=== PATIENT | male | born 1985 | race Caucasian/White ===

== ENCOUNTER 2021-10-22 14:15 | Emergency (ER) | payer OTHER ==
[~2021-10-22] VITALS: Ht 180.3 cm; Wt 97.5 kg
--- NOTE | 2021-10-22 14:15 | NUR ---
PT BIBRA 88 FROM HOME C/O WITNESSED SEIZURE EPISODE PT ADMITS TO DRINKING ALCOHOL. PT IS AAOX3, NOT IN RESPIRATORY DISTRESS, HOOKED TO RIGHT OF WAY MAN, SEIZURE PREC INITIATED. KEPT RESTED AND COMFORTABLE. WILL CONTINUE TO MONITOR.
--- NOTE | 2021-10-22 15:12 | NUR ---
SEEN AND EXAMINED BY .
[2021-10-22] MEDS ORDERED: LORAZEPAM INJ 2 MG/ML VIAL IM ONE (15:30)
[2021-10-22] MEDS ORDERED: LORAZEPAM INJ 2 MG/ML VIAL ONE (15:38)
[2021-10-22] MEDS ORDERED: LORAZEPAM INJ 2 MG/ML VIAL IV ONE (16:30)
[2021-10-22] MEDS ORDERED: CHLO25CA22 PO (16:58)
--- NOTE | 2021-10-22 17:05 | NUR ---
IV removed. Catheter intact and site benign. Pressure and 4x4 applied to site. No bleeding noted. Patient discharged to home in stable condition. Written and verbal after care instructions given. Patient verbalizes understanding of instruction.
[2021-10-22 17:06] VITALS: BP 127/64
== END 2021-10-22 17:06 | disposition home or self-care (01) ==
LOC: ER 14:20
DX: S01.512A Laceration without foreign body of oral cavity, initial encounter (principal); F10.229 Alcohol dependence with intoxication, unspecified; R56.9 Unspecified convulsions; Z79.52 Long term (current) use of systemic steroids; W50.3XXA Accidental bite by another person, initial encounter; Y93.01 Activity, walking, marching and hiking; Y92.481 Parking lot as the place of occurrence of the external cause; Y99.8 Other external cause status; Y90.9 Presence of alcohol in blood, level not specified
CPT/HCPCS: 70450; 72125; 96372; 99284; J2060

== ENCOUNTER 2021-11-14 08:56 | Emergency (ER) | payer OTHER ==
[~2021-11-14] VITALS: Ht 182.9 cm; Wt 99.8 kg
[~2021-11-14 08:56] MED LIST: CHLO25CA22 PO
--- NOTE | 2021-11-14 09:07 | NUR ---
MARA DENNIS "works at [employer] was drinking after work-got drunk could NOT get Home [id number]". TO ER BED 12, HOOKED TO MONITOR. VSMeena GALEANOED TO HOSP GOWN, WARM BLANKET PROVIDED. WILL CONTINUE TO MONITOR. DR LYNCH AT BEDSIDE
[2021-11-14 11:49] VITALS: BP 134/90
--- NOTE | 2021-11-14 11:49 | NUR ---
Patient discharged to home in stable condition. Written and verbal after care instructions given. Patient verbalizes understanding of instruction.
== END 2021-11-14 11:50 | disposition home or self-care (01) ==
LOC: ER 08:58
DX: F10.129 Alcohol abuse with intoxication, unspecified (principal); Z86.69 Personal history of other diseases of the nervous system and sense organs; Z79.899 Other long term (current) drug therapy; Y90.9 Presence of alcohol in blood, level not specified
CPT/HCPCS: 70450-TC

== ENCOUNTER 2021-12-08 12:17 | Inpatient (IN) | payer OTHER ==
[2021-12-07 19:25] VITALS: BP 150/92
[~2021-12-08] VITALS: Ht 180.3 cm; Wt 102.1 kg
[2021-12-08 15:37] LABS: BASOPHILS % (AUTO) 0.7 % (0.0-2.0); EOSINOPHILS % (AUTO) 2.7 % (0.0-6.0); HEMATOCRIT 44 % (39-51); LYMPHOCYTES # (AUTO) 1.2 K/uL (0.8-4.8); LYMPHOCYTES % (AUTO) 30.2 % (20.0-44.0); MEAN CORPUSCULAR HGB CONC 34 g/dl (31.0-36.0); MEAN CORPUSCULAR VOLUME 93 fL (80-96); MONOCYTES # (AUTO) 0.4 K/uL (0.1-1.30); MONOCYTES % (AUTO) 10.1 % (2.0-12.0); NEUTROPHILS # (AUTO) 2.2 K/uL (1.8-8.9); NEUTROPHILS % (AUTO) 56.3 % (43.0-81.0); PLATELET COUNT (AUTO) 284 K/uL (150-450); RED BLOOD CELL COUNT(AUTO) 4.77 MIL/uL (4.5-6.0); WHITE BLOOD COUNT (AUTO) 3.9 K/uL (4.3-11.0)
[2021-12-08 16:03] LABS: CALCIUM, SERUM 8.8 mg/dL (8.5-10.1); CREATININE 0.9 mg/dL (0.6-1.3); POTASSIUM 3.7 mmol/L (3.5-5.1)
[2021-12-08] MEDS ORDERED: IV NS 0.9% 1,000 ML BAG IV ONE (16:30)
--- NOTE | 2021-12-08 16:36 | NUR ---
TAKEN TO CT
--- NOTE | 2021-12-08 17:00 | NUR ---
COVID SWAB DONE AND SENT TO LAB
--- NOTE | 2021-12-08 20:28 | NUR ---
REPORT GIVEN TO [phone]
[2021-12-08] MEDS ORDERED: IV NS 0.9% 1,000 ML IV SCH (21:00)
[2021-12-08] MEDS ORDERED: Z GUARD REMEDY 4 OZ OINT TP PRN (21:00)
[2021-12-08] MEDS ORDERED: ONDANSETRON HCL/PF 4 MG/2 ML VIAL IVP PRN (21:00)
[2021-12-08] MEDS ORDERED: PHARMACY ADD 1 AMP MVI TO IVF DAILY ONE BAG XX PRN (21:00)
[2021-12-08] MEDS ORDERED: LORAZEPAM INJ 2 MG/ML VIAL IV PRN (21:00)
[2021-12-08] MEDS ORDERED: MAGNESIUM HYDROXIDE 30 ML UDC PO PRN (21:00)
[2021-12-08] MEDS ORDERED: ZOLPIDEM TARTRATE 5 MG TABLET PO PRN (21:00)
[2021-12-08] MEDS ORDERED: ACETAMINOPHEN 325 MG TABLET PO PRN (21:00)
[2021-12-08] MEDS ORDERED: MAG HYDROX/AL HYDROX/SIMETH 30 ML UDC PO PRN (21:00)
--- NOTE | 2021-12-08 21:05 | NUR ---
report given to fe GRACE).
--- NOTE | 2021-12-08 21:14 | NUR ---
PT TRANSFERRED PER HOSPITAL PROTOCOL.
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
[2021-12-08] MEDS: MVI ADULT 10ML VIAL = 1AMP 10 ML in IV NS 0.9% 1,000 ML IV SCH (21:48)
[2021-12-08] MEDS: Thiamine 100 MG in IV D5W 50 ML IV SCH (21:52)
[2021-12-08] MEDS: MORPHINE SULFATE INJ 2 MG/ML DISP.SYRIN IV PRN (22:15)
--- NOTE | 2021-12-08 22:15 | NUR ---
RN NOTE MORPHINE GIVEN FOR L ANKLE PAIN. WILL REASSESS FOR EFFECTIVENESS.
[2021-12-08] MEDS: Folic acid 1 MG in IV D5W 50 ML IV SCH (22:27)
[2021-12-09] MEDS: MORPHINE SULFATE INJ 2 MG/ML DISP.SYRIN IV PRN ×6 (02:24→22:54)
--- NOTE | 2021-12-09 03:30 | NUR ---
RN NOTE PATIENT GIVEN MORPHINE FOR LEFT ANKLE PAIN. PATIENT STATES THAT IT HURTS WHEN L FOOT MOVES OR TWITCHES. WRAPPED ANKLE WITH TEJ WRAP TO STABILIZE IT AND ELEVATED TO REDUCE SWELLING. WILL REASSESS FOR EFFECTIVENESS.
[2021-12-09] MEDS: MVI ADULT 10ML VIAL = 1AMP 10 ML in IV NS 0.9% 1,000 ML IV SCH (06:40)
[2021-12-09 06:44] LABS: BASOPHILS % (AUTO) 0.7 % (0.0-2.0); HEMATOCRIT 44 % (39-51); HEMOGLOBIN 14.9 g/dL (13.5-17.5); LYMPHOCYTES # (AUTO) 1.3 K/uL (0.8-4.8); LYMPHOCYTES % (AUTO) 30.6 % (20.0-44.0); MEAN CORPUSCULAR HGB CONC 34 g/dl (31.0-36.0); MEAN CORPUSCULAR VOLUME 94 fL (80-96); MONOCYTES # (AUTO) 0.5 K/uL (0.1-1.30); MONOCYTES % (AUTO) 11.9 % (2.0-12.0); NEUTROPHILS # (AUTO) 2.3 K/uL (1.8-8.9); NEUTROPHILS % (AUTO) 52.8 % (43.0-81.0); PLATELET COUNT (AUTO) 248 K/uL (150-450); RED BLOOD CELL COUNT(AUTO) 4.64 MIL/uL (4.5-6.0); WHITE BLOOD COUNT (AUTO) 4.3 K/uL (4.3-11.0)
--- NOTE | 2021-12-09 06:53 | NUR ---
RN CLOSING NOTE PATIENT IN BED, AWAKE. PATIENT IS A/O X 4, ABLE TO MAKE NEEDS KNOWN. PATIENT TOLERATING ROOM AIR, NOT IN ANY APPARENT DISTRESS. PATIENT GIVEN MORPHINE FOR L ANKLE PAIN AT 0634. PATIENT MAINTAINED NPO STATUS. L HAND 20 G PATENT AND INTACT WITH MVI WITH NS ON GOING AT 100 ML/HR. SAFETY MEASURES IN PLACE: BED LOCKED AN DIN LOWEST POSITION, CALL LIGHT WITHIN REACH, SIDE RAILS UP. WILL ENDORSE TO DAY SHIFT NURSE FOR BRITNEY.
[2021-12-09 07:49] LABS: CALCIUM, SERUM 8.8 mg/dL (8.5-10.1); CREATININE 0.9 mg/dL (0.6-1.3); PHOSPHORUS 3.8 mg/dL (2.5-4.9); POTASSIUM 3.8 mmol/L (3.5-5.1)
[2021-12-09 08:00] VITALS: BP 144/89
[2021-12-09] MEDS ORDERED: MVI ADULT 10ML VIAL = 1AMP 10 ML in IV NS 0.9% 1,000 ML IV PRN (11:00)
[2021-12-09 16:00] VITALS: BP 142/89
[2021-12-09] MEDS: IV NS 0.9% 1,000 ML IV PRN (16:25)
--- NOTE | 2021-12-09 18:00 | NUR ---
RECEIVED PT. IN AM ALERT AND ORIENTED X4.GIRLFRIEND IN TO VISIT.MED. X3 WITH MORPHINE.TOLERATED WELL.VS STABLE.FOR SURGERY TOMORROW,CONSENT SIGNED.
[2021-12-09 20:00] VITALS: BP 146/95
[2021-12-09] MEDS: Folic acid 1 MG in IV D5W 50 ML IV SCH (21:08)
[2021-12-09] MEDS: Thiamine 100 MG in IV D5W 50 ML IV SCH (21:45)
--- NOTE | 2021-12-10 01:11 | NUR ---
MS/TELE/RN PATIENT IS SLEEPING AT THIS TIME, APPEARS COMFORTABLE, NO DISTRESS NOTED, CALL LIGHT IN REACH, NPO STATUS STARTED, WILL MONITOR.
[2021-12-10] MEDS: MORPHINE SULFATE INJ 2 MG/ML DISP.SYRIN IV PRN ×5 (03:26→20:02)
[2021-12-10] MEDS: IV NS 0.9% 1,000 ML IV PRN (03:56)
--- NOTE | 2021-12-10 03:57 | NUR ---
MS/TELE/RN NEED TO HANG NS 1000 MLS WITH MVI, PER NURSING [employer] MVI IS NOT AVAILABLE IN THE NIGHT LOCKER. WILL HANG PLAIN NS INSTEAD.
--- NOTE | 2021-12-10 06:46 | NUR ---
MS/TELE/RN PATIENT IS AWAKE, COMFORTABLE, NO DISTRESS NOTE, CALL LIGHT IN REACH, ALL NEEDS ATTENDED AT THIS TIME, WILL CONTINUE TO MONITOR.
--- NOTE | 2021-12-10 07:40 | NUR ---
RN NOTES A/O X4, VERBALLY RESPONSIVE, NOT IN ACUTE DISTRESS. C/O L ANKLE PAIN, 8/10, W/ STANDING ORDER FOR ANALGESIA. CURRENTLY NPO FOR SCHEDULED SURGERY. SAFETY MEASURES IN PLACE. WILL CONTINUE TO MONITOR.
[2021-12-10 08:00] VITALS: BP 129/92
--- NOTE | 2021-12-10 08:13 | NUR ---
RN NOTES RECEIVED CALL FROM SURGERY; CONSENT FORMS SIGNED AND IN THE CHART. CHECKLIST DONE.
--- NOTE | 2021-12-10 08:26 | NUR ---
RN NOTES PATIENT PICKED UP FOR SURGERY W/ DR. BAUTISTA [facility]IA [facility], ACCOMPANIED BY 1 OR TECH.
[2021-12-10] MEDS ORDERED: POLYMYXIN B SULFATE 500,000 UNITS ONE (08:37)
[2021-12-10] MEDS ORDERED: BUPIVACAINE 0.25% 75 MG/30 ML VIAL ONE (08:37)
[2021-12-10] MEDS ORDERED: FENTANYL PF 250MCG/5ML AMPUL ONE (08:38)
[2021-12-10] MEDS ORDERED: MIDAZOLAM HCL 2 MG/2ML VIAL ONE ×2 (08:38→11:03)
[2021-12-10] MEDS: FOLIC ACID 1 MG TABLET PO SCH (09:45)
[2021-12-10] MEDS: THIAMINE HCL 100 MG TABLET PO SCH (09:45)
[2021-12-10] MEDS ORDERED: HYDROMORPHONE 1 MG/1 ML DISP.SYRIN ONE ×2 (10:28→10:45)
--- NOTE | 2021-12-10 11:40 | NUR ---
RN NOTES PATIENT RETURNED FROM SURGERY VIA GURNEY, ACCOMPANIED BY 2 OR NURSES.
[2021-12-10] MEDS: HYDROCODONE/APAP 5/325MG TABLET PO PRN ×3 (14:06→22:23)
[2021-12-10] MEDS: ANCEF 1 GM/50 ML D5W IV SCH ×4 (15:56→23:19)
--- NOTE | 2021-12-10 18:17 | NUR ---
RN NOTES LEFT FOOT/ANKLE ELEVATED W/ PILLOWS IN BED; ICE PACKS PLACED ON LEFT ANKLE. PATIENT ABLE TO LIFT LLE; CURRENTLY MANAGING PAIN, NOT IN ACUTE DISTRESS. ABLE TO USE URINAL AT BEDSIDE. NO COMPLAINT OF NAUSEA/VOMITING.
--- NOTE | 2021-12-10 19:30 | NUR ---
RN OPENING NOTE PATIENT IN BED, AWAKE WITH GIRLFRIEND AT BEDSIDE. PATIENT IS ABLE TO MAKE NEEDS KNOWN, A/O X 4. PATIENT REPORTS PAIN ON L ANKLE, S/P L ANKLE ORIF WITH DR. BAUTISTA. PATIENT HAS A L HAND 20 G PATENT AND INTACT, NS RUNNING AT THIS TIME, WILL HANG MVI WITH NS. PATIENT REPORTS PAIN ON L ANKLE, WILL MANAGE PAIN ACCORDINGLY. PATIENT ON RA, TOLERATING WELL. SAFETY MEASURES IN PLACE: BED LOCKED AND IN LOWEST POSITION, CALL LIGHT WITHIN REACH, SIDE RAILS UP. WILL MONITOR PATIENT CLOSELY.
[2021-12-10 20:00] VITALS: BP 121/78
--- NOTE | 2021-12-10 20:02 | NUR ---
RN NOTE MORPHINE GIVEN FOR PAIN ON L ANKLE. WILL REASSESS MED EFFECTIVENESS. ICE PACK ON SX SITE.
--- NOTE | 2021-12-10 22:25 | NUR ---
RN NOTE PATIENT GIVEN NORCO 5-325 AT THIS TIME. WILL REASSESS MED EFFECTIVENESS AT A LATER TIME.
[2021-12-11] MEDS: MORPHINE SULFATE INJ 2 MG/ML DISP.SYRIN IV PRN ×5 (00:04→16:49)
--- NOTE | 2021-12-11 00:05 | NUR ---
RN NOTE PATIENT GIVEN MORPHINE 2 MG IVP AT THIS TIME AND AMBIEN TO HELP WITH AID PATIENT TO SLEEP. WILL REASSESS MED EFFECTIVENESS AT A LATER TIME.
[2021-12-11] MEDS: HYDROCODONE/APAP 5/325MG TABLET PO PRN ×4 (02:23→16:47)
--- NOTE | 2021-12-11 02:25 | NUR ---
RN NOTE PATIENT GIVEN NORCO 5-325 AT THIS TIME. WILL REASSESS MED EFFECTIVENESS AT A LATER TIME.
[2021-12-11 06:48] LABS: BASOPHILS % (AUTO) 0.2 % (0.0-2.0); HEMATOCRIT 41 % (39-51); HEMOGLOBIN 13.9 g/dL (13.5-17.5); LYMPHOCYTES # (AUTO) 1.3 K/uL (0.8-4.8); LYMPHOCYTES % (AUTO) 16.3 % (20.0-44.0); MEAN CORPUSCULAR HGB CONC 34 g/dl (31.0-36.0); MEAN CORPUSCULAR VOLUME 93 fL (80-96); MONOCYTES # (AUTO) 0.8 K/uL (0.1-1.30); MONOCYTES % (AUTO) 10.6 % (2.0-12.0); NEUTROPHILS # (AUTO) 5.6 K/uL (1.8-8.9); NEUTROPHILS % (AUTO) 71.9 % (43.0-81.0); PLATELET COUNT (AUTO) 268 K/uL (150-450); RED BLOOD CELL COUNT(AUTO) 4.45 MIL/uL (4.5-6.0); WHITE BLOOD COUNT (AUTO) 7.7 K/uL (4.3-11.0)
[2021-12-11 06:52] LABS: ALBUMIN 3.6 g/dL (3.4-5.0); BILIRUBIN,TOTAL 0.5 mg/dL (0.2-1.0); CALCIUM, SERUM 8.7 mg/dL (8.5-10.1); MAGNESIUM 1.9 mg/dL (1.8-2.4); PHOSPHORUS 4.4 mg/dL (2.5-4.9); POTASSIUM 3.7 mmol/L (3.5-5.1)
--- NOTE | 2021-12-11 07:29 | NUR ---
MS RN OPENING NOTE PATIENT ASLEEP IN BED, AROUSABLE BY NAME TO A/O X 4, TOLERATING WELL ON ROOM AIR WITH NO S/S OF RESPIRATORY DISTRESS. BREATHING EVEN AND UNLABORED. L HAND 20 G SL CLEAN, INTACT AND FLUSHING WELL. PATIENT REPORTS PAIN ON L ANKLE, WILL MANAGE PAIN ACCORDINGLY. PATIENT ON RA, TOLERATING WELL. SAFETY MEASURES IN PLACE: BED LOCKED AND IN LOWEST POSITION, CALL LIGHT WITHIN REACH, SIDE RAILS UP. WILL CONTINUE TO MONITOR.
--- NOTE | 2021-12-11 07:36 | NUR ---
RN CLOSING NOTE PATIENT IN BED, EYES CLOSED, EASILY AWAKENED. PATIENT IS ABLE TO MAKE NEEDS KNOWN, A/O X 4. PATIENT REPORTS PAIN ON L ANKLE, S/P L ANKLE ORIF WITH DR. BAUTISTA. PAIN MANAGED WITH MORPHINE AND NORCO. PATIENT HAS A L HAND 20 G PATENT AND INTACT, MVI WITH NS ON GOING. PATIENT ON RA, TOLERATING WELL. SAFETY MEASURES IN PLACE: BED LOCKED AND IN LOWEST POSITION, CALL LIGHT WITHIN REACH, SIDE RAILS UP. ALL NEEDS MET AND ATTENDED. ALL ORDERS CARRIED OUT. ENDORSED TO DAY SHIFT NURSE FOR BRITNEY.
--- NOTE | 2021-12-11 08:17 | NUR ---
MS RN NOTE PATIENT COMPLAINT OF 9/10 LEFT ANKLE PAIN AND REQUESTING PAIN MEDICATION. PRN NORCO 5/325 PO ADMINISTERED ORDERED. WILL CONTINUE TO MONITOR FOR S/S OF PAIN.
[2021-12-11] MEDS: THIAMINE HCL 100 MG TABLET PO SCH (08:18)
[2021-12-11] MEDS: FOLIC ACID 1 MG TABLET PO SCH (08:18)
--- NOTE | 2021-12-11 08:52 | NUR ---
MS RN NOTE PATIENT COMPLAINT OF 8/10 LEFT ANKLE PAIN AND REQUESTING PAIN MEDICATION PRN MORPHINE 2 MG IVP ADMINISTERED ORDERED. WILL CONTINUE TO MONITOR FOR S/S OF PAIN.
[2021-12-11] MEDS ORDERED: ASPIRIN 325 MG TABLET PO SCH (09:00)
[2021-12-11] MEDS ORDERED: MULTIVITAMINS,THERAGRAN 1 UDTAB TABLET PO SCH (09:00)
[2021-12-11] MEDS ORDERED: HYDR-4275 PO (10:53)
--- NOTE | 2021-12-11 12:00 | NUR ---
MS RN NOTE WAS CONTACTED TO REQUEST ELECTRONIC PRESCRIPTION FOR NORCO TO SEND TO PATIENT'S PHARMACY. I WAS INFORMED BY PATIENT'S HOME PHARMACY ([facility]) THAT THEY DO NOT STOCK THE CURRENTLY PRESCRIBED VICODIN. AWARE.
--- NOTE | 2021-12-11 12:25 | NUR ---
MS RN NOTE PATIENT COMPLAINT OF 9/10 LEFT ANKLE PAIN AND REQUESTING MEDICATION. PRN NORCO 5/325 MG PO ADMINISTERED ORDERED. WILL CONTINUE TO MONITOR FOR S/S OF PAIN.
--- NOTE | 2021-12-11 18:47 | NUR ---
MS RECEPTION NOTE PATIENT A/O X 4, ABLE TO MAKE NEEDS KNOWN, TOLERATING WELL ON ROOM AIR WITH NO S/S OF RESPIRATORY DISTRESS. BREATHING EVEN AND UNLABORED. PATIENT MADE AWARE OF MD DISCHARGE INSTRUCTIONS, VERBALIZED UNDERSTANDING AND SIGNED DISCHARGE INSTRUCTIONS SHEET. PATIENT VERBALIZED POSSESSION OF BELONGINGS AND SIGNED BELONGINGS SHEET. EDUCATION PROVIDED IN DISCHARGE PAPERWORK. PATIENT PROVIDED WITH MD NOTE FOR EXCUSE FROM WORK. VITAL SIGNS TAKEN AND BP ELEVATED, LIKELY DUE TO PERSISTENT PAIN, ALL OTHER VITAL SIGNS STABLE. PATIENT PROVIDED WITH CRUTCHES TO TAKE HOME. IV LINE AND ARMBAND REMOVED. PATIENT AMBULATED OFF OF UNIT WITH USE OF CRUTCHES WHILE ACCOMPANIED BY GIRLFRIEND.
--- NOTE | 2021-12-11 19:51 | NUR ---
MS RN NOTE SPOKE WITH [facility] WHO STATED THEY HAD NOT RECEIVED THE ELECTRONIC PRESCRIPTION FOR NORCO. MD WAS CONTACTED AND I SPOKE WITH CLIENT PORTFOLIO MANAGER BIANCA AT [facility] AND PROVIDED HER THE EPIC CONTACT NUMBER FOR MD FOR HER TO FOLLOW-UP WITH MD TOMORROW.
[2021-12-12] MEDS ORDERED: HYDR-3976 PO (12:37)
== END 2021-12-11 19:00 | disposition home or self-care (01) | DRG 313 ==
LOC: ER 12:22 → MED 20:30
PROVIDERS: ADMIT Family Medicine
PROC: 0QSK04Z Reposition Left Fibula with Internal Fixation Device, Open Approach (ICD-10-PCS; principal; 2021-12-10)
DX: S82.62XA Displaced fracture of lateral malleolus of left fibula, initial encounter for closed fracture (principal); R56.9 Unspecified convulsions; D72.819 Decreased white blood cell count, unspecified; S82.392A Other fracture of lower end of left tibia, initial encounter for closed fracture; Y90.9 Presence of alcohol in blood, level not specified; X58.XXXA Exposure to other specified factors, initial encounter; Y93.9 Activity, unspecified; Y92.009 Unspecified place in unspecified non-institutional (private) residence as the place of occurrence of the external cause; Z20.822 Contact with and (suspected) exposure to COVID-19; F10.10 Alcohol abuse, uncomplicated
CPT/HCPCS: 36415; 71045-TC; 73600-TC; 73610-TC; 73700-TC; 80048-TC; 80053-TC; 80061-TC; 83735-TC; 84100-TC; 85025-TC; 85730-TC; 87081-TC; 97116-TC; 97530-TC; A4649; A6402; C1713; C9803; G0378; J0690; J1100; J1170; J2250; J2270; J2405; J2704; J3010; J3411; J3490; J7030; J7060

== ENCOUNTER 2022-02-10 13:20 | Inpatient (IN) | payer OTHER ==
[~2022-02-10] VITALS: Ht 180.3 cm; Wt 105.7 kg
[~2022-02-10 13:20] MED LIST changes: -CHLO25CA22 PO; +HYDR-3976 PO; +HYDR-4275 PO
[2022-02-10] MEDS ORDERED: CEFTRIAXONE 1GM BAG (ER ONLY) 50 ML IV ONE ×2 (14:00→14:05)
[2022-02-10] MEDS ORDERED: VANCOMYCIN 1 GM in IV D5W 250 ML IV ONE (14:00)
--- NOTE | 2022-02-10 14:05 | NUR ---
WORSENING RIGHT ANKLE PAIN/SWELLING AND REDNESS X 12 DAYS. PLACED COMFORTABLY IN BED. VITALS CHECKED.
--- NOTE | 2022-02-10 14:10 | NUR ---
IV CANNULA G18 INSERTED ON RIGHT FA. BLOOD DRAWN AND SENT TO LAB
--- NOTE | 2022-02-10 14:18 | NUR ---
COVID AND MRSA SWAB SENT TO LAB
--- NOTE | 2022-02-10 14:19 | NUR ---
EKG DONE AT BEDSIDE
[2022-02-10 14:24] LABS: BASOPHILS % (AUTO) 0.5 % (0.0-2.0); EOSINOPHILS % (AUTO) 2.1 % (0.0-6.0); HEMATOCRIT 47 % (39-51); HEMOGLOBIN 15.9 g/dL (13.5-17.5); LYMPHOCYTES # (AUTO) 1.6 K/uL (0.8-4.8); LYMPHOCYTES % (AUTO) 27.7 % (20.0-44.0); MEAN CORPUSCULAR HGB CONC 34 g/dl (31.0-36.0); MEAN CORPUSCULAR VOLUME 89 fL (80-96); MONOCYTES # (AUTO) 0.4 K/uL (0.1-1.30); MONOCYTES % (AUTO) 7.9 % (2.0-12.0); NEUTROPHILS # (AUTO) 3.5 K/uL (1.8-8.9); NEUTROPHILS % (AUTO) 61.8 % (43.0-81.0); PLATELET COUNT (AUTO) 317 K/uL (150-450); RED BLOOD CELL COUNT(AUTO) 5.23 MIL/uL (4.5-6.0); WHITE BLOOD COUNT (AUTO) 5.7 K/uL (4.3-11.0)
[2022-02-10 14:49] LABS: CREATININE 1.1 mg/dL (0.6-1.3); POTASSIUM 4.1 mmol/L (3.5-5.1)
--- NOTE | 2022-02-10 16:04 | NUR ---
MOVE SHEET SUBMITTED
[2022-02-10 16:30] LABS: CALCIUM, SERUM 9.4 mg/dL (8.5-10.1)
--- NOTE | 2022-02-10 17:56 | NUR ---
LOKI FROM [facility] [phone] FAX IS [phone]
[2022-02-10] MEDS ORDERED: ACETAMINOPHEN 325 MG TABLET PO PRN (18:30)
[2022-02-10] MEDS ORDERED: MAGNESIUM HYDROXIDE 30 ML UDC PO PRN (18:30)
[2022-02-10] MEDS ORDERED: TEMAZEPAM 15 MG CAPSULE PO PRN (18:30)
[2022-02-10] MEDS ORDERED: ONDANSETRON HCL/PF 4 MG/2 ML VIAL IVP PRN (18:30)
[2022-02-10] MEDS ORDERED: MAG HYDROX/AL HYDROX/SIMETH 30 ML UDC PO PRN (18:30)
[2022-02-10] MEDS ORDERED: Z GUARD REMEDY 4 OZ OINT TP PRN (18:30)
[2022-02-10] MEDS ORDERED: HYDROCODONE/APAP 5/325MG TABLET PO PRN (18:30)
--- NOTE | 2022-02-10 20:52 | NUR ---
ROOM 327-2
--- NOTE | 2022-02-10 21:08 | NUR ---
REPORT GIVEN TO KEHINDE FREITAS FOR BRITNEY
--- NOTE | 2022-02-10 21:50 | NUR ---
PT TRANSFERRED TO VIA HOSPITAL PROTOCOL
[2022-02-10 22:00] VITALS: BP 151/96
--- NOTE | 2022-02-10 22:10 | NUR ---
MS ACCOUNTING FILE CLERK NOTE PT TRANSPORTED VIA GURNEY TO UNIT AT THIS TIME. PT ADMITTED TO MS UNIT FROM ER UNDER [employer] MO FOR ADMITTING DX OF R FOOT CELLULITIS. A/O X4. PT IN AMBULATORY WITH ASSIST. PT STABLE ON ROOM AIR. NO SOB OR S/S OF RESPIRATORY DISTRESS. BREATHING EVEN AND UNLABORED. NOTED WITH R FOOT CELLULITIS AND L ANKLE SCAR. IV ACCESS RFA 18 GAUGE INTACT AND PATENT. PT ORIENTED TO UNIT, STAFF, AND ROOM. PT BELONGINGS ACCOUNTED FOR AND BELONGINGS LIST SIGNED. SAFETY PRECAUTIONS IN PLACE. BED IN LOWEST LOCKED POSITION, HOB ELEVATED, SIDE RAILS UP X2, AND CALL LIGHT AND TABLE WITHIN REACH. ALL NEEDS MET AT THIS TIME.
[2022-02-10] MEDS: HYDROCODONE/APAP 10/325MG TABLET PO PRN (22:43)
[2022-02-10] MEDS: IV NS 0.9% 1,000 ML IV PRN (22:43)
[2022-02-10] MEDS: ENOXAPARIN SODIUM 40 MG/0.4 ML DISP.SYRIN SQ SCH (22:43)
--- NOTE | 2022-02-10 22:43 | NUR ---
RN NOTE PT COMPLAINED OF PAIN /10 OF R FOOT/ANKLE. ADMINISTERED NORCO 10-325 MG FOR SEVERE PAIN ORDERED. ALL NEEDS MET AT THIS TIME.
[2022-02-11] MEDS ORDERED: VANCOMYCIN 1 GM VIAL ONE ×2 (02:49→04:09)
[2022-02-11] MEDS ORDERED: VANCOMYCIN 1.5 GM in IV D5W 500 ML IV ONE (03:00)
[2022-02-11] MEDS ORDERED: VANCOMYCIN 1 GM in IV D5W 250ml IV SCH (03:00)
[2022-02-11] MEDS: VANCOMYCIN 500 MG in IV D5W 100ml IV SCH ×2 (03:00→04:12)
[2022-02-11] MEDS: HYDROCODONE/APAP 10/325MG TABLET PO PRN ×5 (03:11→20:53)
--- NOTE | 2022-02-11 03:11 | NUR ---
RN NOTE PT COMPLAINED OF PAIN 8/10 OF R FOOT/ANKLE. ADMINISTERED NORCO 10-325 MG FOR SEVERE PAIN ORDERED. ALL NEEDS MET AT THIS TIME.
--- NOTE | 2022-02-11 06:38 | NUR ---
MS RN CLOSING NOTE PT AWAKE IN BED. A/OX4 AND ABLE TO MAKE NEEDS KNOWN. PT STABLE ON ROOM AIR. NO SOB OR S/S OF RESPIRATORY DISTRESS. BREATHING EVEN AND UNLABORED. IV ACCESS RFA 18 GAUGE INTACT AND PATENT. ALL DUE MEDS GIVEN ORDERED. SAFETY PRECAUTIONS IN PLACE AT ALL TIMES. BED IN LOWEST LOCKED POSITION, HOB ELEVATED, SIDE RAILS UP X2, AND CALL LIGHT AND TABLE WITHIN REACH. ALL NEEDS MET AT THIS TIME AND WILL ENDORSE TO ONCOMING NURSE FOR BRITNEY.
[2022-02-11 07:08] LABS: CALCIUM, SERUM 9.3 mg/dL (8.5-10.1); MAGNESIUM 1.6 mg/dL (1.8-2.4); PHOSPHORUS 3.8 mg/dL (2.5-4.9); POTASSIUM 3.9 mmol/L (3.5-5.1)
[2022-02-11 07:17] LABS: BASOPHILS % (AUTO) 0.7 % (0.0-2.0); EOSINOPHILS % (AUTO) 3.3 % (0.0-6.0); HEMATOCRIT 42 % (39-51); HEMOGLOBIN 14.3 g/dL (13.5-17.5); LYMPHOCYTES # (AUTO) 1.6 K/uL (0.8-4.8); LYMPHOCYTES % (AUTO) 37.9 % (20.0-44.0); MEAN CORPUSCULAR HGB CONC 34 g/dl (31.0-36.0); MEAN CORPUSCULAR VOLUME 89 fL (80-96); MONOCYTES # (AUTO) 0.6 K/uL (0.1-1.30); MONOCYTES % (AUTO) 13.2 % (2.0-12.0); NEUTROPHILS # (AUTO) 1.9 K/uL (1.8-8.9); NEUTROPHILS % (AUTO) 44.9 % (43.0-81.0); PLATELET COUNT (AUTO) 285 K/uL (150-450); RED BLOOD CELL COUNT(AUTO) 4.69 MIL/uL (4.5-6.0); WHITE BLOOD COUNT (AUTO) 4.3 K/uL (4.3-11.0)
--- NOTE | 2022-02-11 07:30 | NUR ---
ms rn received on bed, awake,alert,oriented x4,not in any form of distress, respirations even and unlabored,no sob noted, lungs are clear,abdomen soft,positive bowel sounds, denies pain at this time,all needs attended.
[2022-02-11] MEDS: PANTOPRAZOLE 40 MG TABLET.DR PO SCH (07:59)
[2022-02-11 08:00] VITALS: BP 140/89
--- NOTE | 2022-02-11 08:30 | NUR ---
ms junior breakfast served, due meds given,tolerated well.
--- NOTE | 2022-02-11 09:06 | NUR ---
WOUND CARE CONSULT: RECEIVED REQUEST FROM DNP FOR RT ANKLE SWELLING, TENDERNESS AND REDNESS, PRESENT ON ADMISSION. RECOMMEND DPM CONSULT. DR VALERO NOTIFIED OF REQUEST. LEG ELEVATED ON PILLOW. IN AGREEMENT WITH PLAN OF CARE.
[2022-02-11] MEDS: Magnesium 1GM/D5W 100ML PREMIX 100 ML IV SCH ×2 (10:49→12:23)
--- NOTE | 2022-02-11 12:10 | NUR ---
ms rn was seen by dr. torrez for right ankle w/ orders made and carried out.
--- NOTE | 2022-02-11 16:00 | NUR ---
ms rn went down fod mri
[2022-02-11] MEDS ORDERED: GADOTERATE MEGLUMINE 10 MMOL/20 ML VIAL IV ONE (16:20)
[2022-02-11] MEDS: VANCOMYCIN 1.25 GM in IV D5W 250 ML IV SCH (16:26)
--- NOTE | 2022-02-11 16:55 | NUR ---
ms rn came back from mri
[2022-02-11] MEDS: ENOXAPARIN SODIUM 40 MG/0.4 ML DISP.SYRIN SQ SCH (18:51)
--- NOTE | 2022-02-11 19:00 | NUR ---
ms rn on bed, no distress noted,all needs attended.
[2022-02-11 20:00] VITALS: BP 143/90
--- NOTE | 2022-02-11 21:52 | NUR ---
MS RN OPENING NOTES; RECEIVED PATIENT AWAKE IN BED, BED IN LOW POSITION CALL LIGHTS WITHIN REACH, NO COMPLAIN OF PAIN AND DISCOMFORT AT THIS TIME, ON ROOM AIR SATURATING WELL, PATIENT WAS A/OX4 ABLE TO MAKE NEEDS KNOWN, WITH IV LINE AT RFA#18 WITH ONGOING [id number] PER HOUR INFUSING WELL, PATIENT KEPT CLEAN AND DRY ALL NEEDS MET WILL CONTINUE TO MONITOR.
[2022-02-12] MEDS: HYDROCODONE/APAP 10/325MG TABLET PO PRN ×3 (01:05→08:50)
[2022-02-12] MEDS: VANCOMYCIN 1.25 GM in IV D5W 250 ML IV SCH (04:14)
[2022-02-12] MEDS: IV NS 0.9% 1,000 ML IV PRN (04:58)
--- NOTE | 2022-02-12 06:29 | NUR ---
RN CLOSING NOTES: PATIENT SLEEP IN BED COMFORTABLY, AROUSABLE LEOBARDO VERBAL STIMULI, BED IN LOW POSITION, CALL LIGHTS WITHIN REACH, NO COMPLAIN OF PAIN AND DISCOMFORT AT THIS TIME, A/OX4 AMBULATORY, WITH IV LINE AT LEFT HAND#22 WITH ONGOING NSS @75ML/HR INFUSING WELL, PATIENT KEPT CLEAN AND DRY ALL NEEDS MET ENDORSE TO INCOMING SHIFT.
[2022-02-12 06:59] LABS: CALCIUM, SERUM 8.4 mg/dL (8.5-10.1); MAGNESIUM 1.7 mg/dL (1.8-2.4); POTASSIUM 3.8 mmol/L (3.5-5.1)
--- NOTE | 2022-02-12 07:20 | NUR ---
ms rn received on bed, awake,alert,oriented x4,not in any form of distress, respirations even and unlabored,no sob noted, lungs are clear,abdomen soft,positive bowel sounds,denies pain at this time, will monitor patient.
--- NOTE | 2022-02-12 08:30 | NUR ---
ms junior was seen by Martin baum w/ orders made and carried out, for d/c today.
[2022-02-12] MEDS ORDERED: CEPH500T PO (08:33)
[2022-02-12] MEDS ORDERED: HYDR-3972 PO (08:33)
[2022-02-12] MEDS: PANTOPRAZOLE 40 MG TABLET.DR PO SCH (08:50)
[2022-02-12 08:57] VITALS: BP 135/85
[2022-02-12] MEDS ORDERED: MAGNESIUM OXIDE 400 MG TABLET PO ONE (09:00)
--- NOTE | 2022-02-12 09:00 | NUR ---
ms junior breakfast served,due meds given,tolerated well.
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
== END 2022-02-12 11:00 | disposition home or self-care (01) | DRG 383 ==
LOC: ER 13:23 → MED 21:30
PROVIDERS: ADMIT Nurse Practitioner Acute Care; ATTEND Nurse Practitioner Acute Care
DX: L03.115 Cellulitis of right lower limb (principal); F10.11 Alcohol abuse, in remission; G40.909 Epilepsy, unspecified, not intractable, without status epilepticus; Z20.822 Contact with and (suspected) exposure to COVID-19; Z87.81 Personal history of (healed) traumatic fracture; R26.2 Difficulty in walking, not elsewhere classified; M65.9 Synovitis and tenosynovitis, unspecified
CPT/HCPCS: 36415; 71045-TC; 73610-TC; 73723-TC; 80048-TC; 83735-TC; 84100-TC; 85025-TC; 85730-TC; 87040-TC; 87081-TC; 93971-TC; 97116-TC; 97530-TC; A9575; C9803; G0378; J0696; J1650; J3370; J3475; J7030; J7060

== ENCOUNTER 2022-03-13 22:59 | Emergency (ER) | payer OTHER ==
[~2022-03-13] VITALS: Ht 180.3 cm; Wt 99.8 kg
[~2022-03-13 22:59] MED LIST changes: +CEPH500T PO; +HYDR-3972 PO; -HYDR-3976 PO; -HYDR-4275 PO
[2022-03-14 00:23] VITALS: BP 134/81
[2022-03-14] MEDS ORDERED: IBUPROFEN 400 MG TABLET PO ONE (00:30)
[2022-03-14] MEDS ORDERED: IBUPROFEN 400 MG TABLET ONE (00:32)
[2022-03-14] MEDS ORDERED: ACETAMINOPHEN ES 500 MG TABLET ONE (01:56)
[2022-03-14] MEDS ORDERED: ACETAMINOPHEN ES 500 MG TABLET PO ONE (02:00)
[2022-03-14] MEDS ORDERED: NAPR500T6 PO (03:38)
--- NOTE | 2022-03-14 04:11 | NUR ---
Patient discharged to home in stable condition. Written and verbal after care instructions given. Patient verbalizes understanding of instruction.
== END 2022-03-14 04:11 | disposition home or self-care (01) ==
LOC: ER 23:06
DX: S92.322A Displaced fracture of second metatarsal bone, left foot, initial encounter for closed fracture (principal); S92.342A Displaced fracture of fourth metatarsal bone, left foot, initial encounter for closed fracture; Z86.69 Personal history of other diseases of the nervous system and sense organs; Z79.899 Other long term (current) drug therapy; X50.1XXA Overexertion from prolonged static or awkward postures, initial encounter; Y93.89 Activity, other specified; Y92.89 Other specified places as the place of occurrence of the external cause; Y99.8 Other external cause status
CPT/HCPCS: 73610-TC; 73630-TC

== ENCOUNTER → 2022-08-10 | Emergency (ER) | payer BC, OTHER ==
[~2022-08-10] VITALS: Ht 180.3 cm; Wt 102.1 kg
[~2022-08-10] MED LIST changes: +LORA-259 PO; +LORAZEPAM INJ 2 MG/ML VIAL ONE; +NAPR500T6 PO
[2022-08-10 16:48] VITALS: BP 114/73
--- NOTE | 2022-08-10 17:00 | NUR ---
BIB RA 78 S/P SEIZURE ON THE WAY TO GET WINE,LAST DRINK WAS YESTERDAY H/O SZ FROM ALCOHOL WITHDRAWAL
[2022-08-10 17:42] LABS: BASOPHILS % (AUTO) 0.7 % (0.0-2.0); EOSINOPHILS % (AUTO) 0.9 % (0.0-6.0); HEMATOCRIT 46 % (39-51); HEMOGLOBIN 15.3 g/dL (13.5-17.5); LYMPHOCYTES # (AUTO) 0.4 K/uL (0.8-4.8); MEAN CORPUSCULAR HGB CONC 33 g/dl (31.0-36.0); MEAN CORPUSCULAR VOLUME 93 fL (80-96); MONOCYTES # (AUTO) 0.4 K/uL (0.1-1.30); NEUTROPHILS # (AUTO) 3.2 K/uL (1.8-8.9); NEUTROPHILS % (AUTO) 79.4 % (43.0-81.0); PLATELET COUNT (AUTO) 139 K/uL (150-450); RED BLOOD CELL COUNT(AUTO) 4.94 MIL/uL (4.5-6.0)
[2022-08-10] MEDS: LORAZEPAM INJ 2 MG/ML VIAL IVP ONE (17:50)
[2022-08-10 17:51] LABS: CREATININE 1.1 mg/dL (0.6-1.3); POTASSIUM 3.6 mmol/L (3.5-5.1)
--- NOTE | 2022-08-10 18:35 | NUR ---
IV removed. Catheter intact and site benign. Pressure and 4x4 applied to site. No bleeding noted.
== END | disposition home or self-care (01) ==
LOC: ER 16:11
DX: R56.9 Unspecified convulsions (principal); F10.239 Alcohol dependence with withdrawal, unspecified; F10.229 Alcohol dependence with intoxication, unspecified; Z79.899 Other long term (current) drug therapy; Y90.9 Presence of alcohol in blood, level not specified
CPT/HCPCS: 99284; 96374; 70450; 85025; 80048; 36415; J2060

== ENCOUNTER 2022-08-30 17:49 | Emergency (ER) | payer BC, OTHER ==
[~2022-08-30] VITALS: Ht 180.3 cm; Wt 95.3 kg
[~2022-08-30 17:49] MED LIST changes: -LORAZEPAM INJ 2 MG/ML VIAL ONE
[2022-08-30 17:57] VITALS: BP 139/88
--- NOTE | 2022-08-30 17:57 | NUR ---
BIBS W/ C/O PAIN AND REDNESS SINCE YESTERDAY ON RIGHT OCCIPITAL AREA.
--- NOTE | 2022-08-30 18:15 | NUR ---
DR JAMES W/ PT FOR EVAL
[2022-08-30] MEDS ORDERED: CLIN300C12 PO (18:32)
--- NOTE | 2022-08-30 18:50 | NUR ---
Patient discharged to home in stable condition. Written and verbal after care instructions given. Patient verbalizes understanding of instruction.
== END 2022-08-30 18:53 | disposition home or self-care (01) ==
LOC: ER 17:58
DX: L03.811 Cellulitis of head [any part, except face] (principal); Z79.899 Other long term (current) drug therapy

== ENCOUNTER 2022-09-27 09:37 | Inpatient (IN) | payer BC, OTHER ==
[~2022-09-27] VITALS: Ht 175.3 cm; Wt 89.8 kg
[~2022-09-27 09:37] MED LIST changes: +CLIN300C12 PO
--- NOTE | 2022-09-27 09:40 | NUR ---
BIBRA 78 SEIZURE WITNESS BY GIRLFRIEND DUE TO ALCOHOL INTOXICATION , + SEIZURE ONLY WHEN HE DRINKS PER GIRLFRIEND.
[2022-09-27] MEDS ORDERED: LORAZEPAM INJ 2 MG/ML VIAL ONE ×3 (09:43→11:39)
--- NOTE | 2022-09-27 09:43 | NUR ---
/PA AT BEDSIDE FOR EVAL
--- NOTE | 2022-09-27 09:55 | NUR ---
IV LINE ESTABLISHED ON RAC #20, BLOOD DRAWN AND SENT TO LAB
[2022-09-27] MEDS ORDERED: IV NS 0.9% 1,000 ML BAG IV ONE (10:00)
[2022-09-27] MEDS ORDERED: LORAZEPAM INJ 2 MG/ML VIAL IVP ONE (10:00)
--- NOTE | 2022-09-27 10:00 | NUR ---
PT UNABLE TO PROVIDE URINE AT THIS TIME; URINAL AT BEDSIDE.
--- NOTE | 2022-09-27 10:01 | NUR ---
Mary keenan in ED - 09/27/22 at 1002 by DBAGANG ALEX Kinney SEIZURE WITNESS BY GIRLFRIEND DUE TO ALCOHOL INTOXICATION , + SEIZURE ONLY WHEN HE DRINKS PER GIRLFRIEND.
--- NOTE | 2022-09-27 10:03 | NUR ---
PT TAKEN TO RADIOLOGY FOR CT
--- NOTE | 2022-09-27 10:12 | NUR ---
PT RETURNED FROM RADIOLOGY
[2022-09-27 10:17] LABS: BASOPHILS % (AUTO) 0.6 % (0.0-2.0); EOSINOPHILS % (AUTO) 0.4 % (0.0-6.0); HEMATOCRIT 46 % (39-51); HEMOGLOBIN 15.1 g/dL (13.5-17.5); LYMPHOCYTES # (AUTO) 0.8 K/uL (0.8-4.8); LYMPHOCYTES % (AUTO) 16.9 % (20.0-44.0); MEAN CORPUSCULAR HGB CONC 33 g/dl (31.0-36.0); MEAN CORPUSCULAR VOLUME 94 fL (80-96); MONOCYTES # (AUTO) 0.4 K/uL (0.1-1.30); MONOCYTES % (AUTO) 8.6 % (2.0-12.0); NEUTROPHILS # (AUTO) 3.5 K/uL (1.8-8.9); NEUTROPHILS % (AUTO) 73.5 % (43.0-81.0); PLATELET COUNT (AUTO) 190 K/uL (150-450); RED BLOOD CELL COUNT(AUTO) 4.86 MIL/uL (4.5-6.0); WHITE BLOOD COUNT (AUTO) 4.7 K/uL (4.3-11.0)
[2022-09-27] MEDS ORDERED: LORAZEPAM INJ 2 MG/ML VIAL IV ONE ×2 (10:30→11:30)
--- NOTE | 2022-09-27 10:36 | NUR ---
EMT AT BEDSIDE FOR WOUND CARE
--- NOTE | 2022-09-27 10:39 | NUR ---
MOVE SHEET SUBMITTED.
[2022-09-27 10:42] LABS: ALANINE AMINOTRANSFERASE 111 U/L (12-78); ALBUMIN 3.6 g/dL (3.4-5.0); ALCOHOL, BLOOD < 3 mg/dL (0-0); ALKALINE PHOSPHATASE 139 U/L (46-116); ASPARTATE AMINOTRANSFERASE 186 U/L (15-37); BILIRUBIN,DIRECT 0.4 mg/dL (0.0-0.2); BILIRUBIN,TOTAL 0.9 mg/dL (0.2-1.0); CARBON DIOXIDE 22 mmol/L (21-32); CHLORIDE 96 mmol/L (98-107); CREATININE 1.2 mg/dL (0.6-1.3); GLUCOSE 139 mg/dL (74-106); POTASSIUM 4.1 mmol/L (3.5-5.1); SODIUM SERUM 136 mmol/L (136-145); TOTAL PROTEIN, SERUM 7.6 g/dL (6.4-8.2); UREA NITROGEN, BLOOD 7 mg/dL (7-18)
--- NOTE | 2022-09-27 10:42 | NUR ---
RASHAD BADILLO COLLECTED AND SENT TO LAB
[2022-09-27 10:46] LABS: ACETAMINOPHEN 0 ug/ml (10-30)
--- NOTE | 2022-09-27 11:48 | NUR ---
URINE SAMPLE COLLECTED AND SENT TO LAB
[2022-09-27 12:55] LABS: BILIRUBIN,URINE NEGATIVE (NEGATIVE); COLOR,URINE YELLOW (YELLOW); LEUKOCYTE ESTERASE ,URINE NEGATIVE (NEGATIVE); NITRITE, URINE NEGATIVE (NEGATIVE); PROTEIN,URINE 2+ mg/dl (NEGATIVE); UGLUCOSE NEGATIVE (NEGATIVE); UROBILINOGEN,URINE 0.2 EU/dL (0.2)
[2022-09-27 13:05] LABS: BACTERIA,URINE Rare /HPF (None Seen); SQUAMOUS EPITHELIAL CELL,UR Few /HPF (None Seen); WBC,URINE 0-2 /HPF (0-3)
[2022-09-27] MEDS ORDERED: MAG HYDROX/AL HYDROX/SIMETH 30 ML UDC PO PRN (14:00)
[2022-09-27] MEDS ORDERED: MAGNESIUM HYDROXIDE 30 ML UDC PO PRN (14:00)
[2022-09-27] MEDS ORDERED: Z GUARD REMEDY 4 OZ OINT TP PRN (14:00)
[2022-09-27] MEDS ORDERED: TEMAZEPAM 15 MG CAPSULE PO PRN (14:00)
[2022-09-27] MEDS ORDERED: LORAZEPAM INJ 2 MG/ML VIAL IV PRN (14:00)
[2022-09-27] MEDS ORDERED: ACETAMINOPHEN 325 MG TABLET PO PRN (14:00)
[2022-09-27] MEDS ORDERED: ONDANSETRON HCL/PF 4 MG/2 ML VIAL IVP PRN (14:00)
--- NOTE | 2022-09-27 17:06 | NUR ---
BED 104
--- NOTE | 2022-09-27 18:17 | NUR ---
RECEIVED REPORT FROM EMY RN FROM ED.
--- NOTE | 2022-09-27 18:20 | NUR ---
PT REPORT GIVEN TO ERMA ANDRADE RN
--- NOTE | 2022-09-27 18:25 | NUR ---
RECEIVED PATIENT VIA GURNEY FROM ED, ALERT AND VERBALLY RESPONSIVE, ON ROOM AIR, NO SOB NOTED, RESPIRATION EVEN AND UNLABORED, NO EPISODE OF SEIZURE NOTED. RIGHT AC PIV NOTED PATENT AND INTACT, FLUSHES WELL, STARTED ON IV NS @100ML/HR ORDERED. VS T 99.2 P 97 RR 22 BP 164/97 02 SAT 97% RA. ON TELE MONITOR WITH SR HR 97. ORIENT TO THE USE OF CALL LIGHT. SAFETY MEASURES IN PLACED. URINAL AT THE BEDSIDE. CALL LIGHT WITHIN REACH. WILL ENDORSE TO YACHT RIGGER NURSE TO CONTINUE ADMISSION ASSESSMENT. Addendum: 09/27/22 at 1858 by ERMA JENKINS RN PATIENT ARRIVED AT 1833.
--- NOTE | 2022-09-27 18:33 | NUR ---
PT TRANSFERRED TO 104 VIA [facility] ACLS PROTOCOL. WARM HANDOFF GIVEN TO ERMA ANDRADE RN
[2022-09-27] MEDS: IV NS 0.9% 1,000 ML IV PRN (18:36)
--- NOTE | 2022-09-27 19:40 | NUR ---
RN OPENING NOTE RECEIVED PATIENT IN BED; AWAKE, ALERT AND ORIENTED X 4. ON ROOM AIR; TOLERATING WELL. BREATHING EVEN AND UNLABORED. IN NO ACUTE DISTRESS. ON TELE MONITORING WHICH READS SINUS RHYTHM HR-96 BPM. WITH IV ACCESS ON RIGHT ANTECUBITAL 20G; PATENT AND INTACT INFUSING WITH NS 1L REGULATED @ 100 ML/HR; FLUSHES WELL. ABLE TO MAKE NEEDS KNOWN. SAFETY PRECAUTIONS IMPLEMENTED: CALL LIGHT AND TABLE WITHIN REACH, SIDE RAILS UP X 2, BED IN LOWEST LOCKED POSITION. WILL CONTINUE PLAN OF CARE
[2022-09-27] MEDS ORDERED: HYDROCODONE/APAP 5/325MG TABLET PO PRN (20:30)
[2022-09-27] MEDS: hydrALAZINE HCL IV 20 MG VIAL IV PRN (22:05)
--- NOTE | 2022-09-27 22:05 | NUR ---
RN NOTE PATIENT'S BP 178/115 MM HG. APRESOLINE IV 10 MG GIVEN ORDERED. KEPT COMFORTABLE IN BED. WILL CONTINUE TO MONITOR.
[2022-09-28] MEDS: IV NS 0.9% 1,000 ML IV PRN (04:18)
--- NOTE | 2022-09-28 06:41 | NUR ---
RN CLOSING NOTE PATIENT IN BED; AWAKE, A/O X 4. STABLE ON ROOM AIR. IN NO APPARENT DISTRESS. ON TELE MONITORING WHICH READS SINUS RHYTHM HR-88 BPM. WITH IV ACCESS ON RIGHT AC 20G; PATENT AND INTACT INFUSING WITH NS 1L REGULATED @ 100 ML/HR. ALL NEEDS ATTENDED. ALL DUE MEDS GIVEN ORDERED. SAFETY PRECAUTIONS MAINTAINED: CALL LIGHT AND TABLE WITHIN REACH, SIDE RAILS UP X 2, BED IN LOWEST LOCKED POSITION. ENDORSED TO MORNING SHIFT FOR BRITNEY.
[2022-09-28 06:48] LABS: BASOPHILS % (AUTO) 0.6 % (0.0-2.0); EOSINOPHILS % (AUTO) 2.1 % (0.0-6.0); HEMATOCRIT 43 % (39-51); HEMOGLOBIN 14.6 g/dL (13.5-17.5); LYMPHOCYTES # (AUTO) 0.6 K/uL (0.8-4.8); LYMPHOCYTES % (AUTO) 15.4 % (20.0-44.0); MEAN CORPUSCULAR HGB CONC 34 g/dl (31.0-36.0); MEAN CORPUSCULAR VOLUME 93 fL (80-96); MONOCYTES # (AUTO) 0.4 K/uL (0.1-1.30); MONOCYTES % (AUTO) 9.3 % (2.0-12.0); NEUTROPHILS % (AUTO) 72.6 % (43.0-81.0); PLATELET COUNT (AUTO) 137 K/uL (150-450); RED BLOOD CELL COUNT(AUTO) 4.62 MIL/uL (4.5-6.0); WHITE BLOOD COUNT (AUTO) 4.2 K/uL (4.3-11.0)
[2022-09-28 07:00] LABS: CALCIUM, SERUM 8.6 mg/dL (8.5-10.1); PHOSPHORUS 3.6 mg/dL (2.5-4.9); POTASSIUM 3.3 mmol/L (3.5-5.1)
--- NOTE | 2022-09-28 07:20 | NUR ---
RN OPENING NOTE RECEIVED PATIENT IN BED; AWAKE, ALERT AND ORIENTED X 4. ON ROOM AIR; TOLERATING WELL. BREATHING EVEN AND UNLABORED. IN NO ACUTE DISTRESS. ON TELE MONITORING . WITH IV ACCESS ON RIGHT ANTECUBITAL 20G; PATENT AND INTACT INFUSING WITH NS 1L REGULATED @ 100 ML/HR; FLUSHES WELL. ABLE TO MAKE NEEDS KNOWN. SAFETY PRECAUTIONS IMPLEMENTED: CALL LIGHT AND TABLE WITHIN REACH, SIDE RAILS UP X 2, BED IN LOWEST LOCKED POSITION. PATIENT IS AMBULATORY BUT REMINDED TO ASK FOR HELP WHEN GETTING UP FOR THE FIRST TIME THIS MORNING BY PRESSING THE CALL LIGHT.
[2022-09-28 07:23] LABS: MAGNESIUM 1.2 mg/dL (1.8-2.4)
[2022-09-28] MEDS ORDERED: PANTOPRAZOLE 40 MG TABLET.DR PO SCH (07:30)
[2022-09-28 08:00] VITALS: BP 150/106
[2022-09-28] MEDS ORDERED: POTASSIUM CHLORIDE 20 MEQ TAB.PRT.SR PO ONE (08:30)
[2022-09-28] MEDS: Magnesium 1GM/D5W 100ML PREMIX 100 ML IV SCH ×4 (08:32→12:30)
[2022-09-28] MEDS ORDERED: THIAMINE HCL 100 MG TABLET PO SCH (09:00)
[2022-09-28] MEDS ORDERED: FOLIC ACID 1 MG TABLET PO SCH (09:00)
[2022-09-28] MEDS: hydrALAZINE HCL IV 20 MG VIAL IV PRN (11:59)
[2022-09-28 12:00] VITALS: BP 164/102
[2022-09-28] MEDS ORDERED: THIA500T PO (12:15)
[2022-09-28] MEDS ORDERED: LISI20TA30 PO (12:15)
[2022-09-28] MEDS ORDERED: MULT-754 PO (12:15)
--- NOTE | 2022-09-28 14:28 | NUR ---
RN NOTE PATIENT DISCHARGED IN STABLE CONDITION. DISCHARGE INSTRUCTION DISCUSSED WITH PATIENT ALL QUESTIONS ANSWERED. PATIENT WAS WALKED TO HOSPITAL MAIN LOBBY BUS PASS GIVEN.
--- NOTE | 2022-09-28 14:48 | NUR ---
SW attempted to meet with pt. at bedside. However, had already departed.
== END 2022-09-28 14:31 | disposition home or self-care (01) | DRG 101 ==
LOC: ER 09:39 → TELE1 18:27
PROVIDERS: ADMIT Nurse Practitioner Acute Care; ATTEND Nurse Practitioner Acute Care
DX: G40.509 Epileptic seizures related to external causes, not intractable, without status epilepticus (principal); F10.231 Alcohol dependence with withdrawal delirium; S40.022A Contusion of left upper arm, initial encounter; W19.XXXA Unspecified fall, initial encounter; Y93.9 Activity, unspecified; Z20.822 Contact with and (suspected) exposure to COVID-19; Y90.0 Blood alcohol level of less than 20 mg/100 ml; Z87.81 Personal history of (healed) traumatic fracture; Z98.890 Other specified postprocedural states; Z79.899 Other long term (current) drug therapy; W18.30XA Fall on same level, unspecified, initial encounter; Y92.009 Unspecified place in unspecified non-institutional (private) residence as the place of occurrence of the external cause; R74.01 Elevation of levels of liver transaminase levels; E66.9 Obesity, unspecified; Z68.29 Body mass index [BMI] 29.0-29.9, adult; I10 Essential (primary) hypertension; S09.90XA Unspecified injury of head, initial encounter
CPT/HCPCS: 36415; 70450-TC; 72125-TC; 80048-TC; 80076-TC; 81001; 83735-TC; 84100-TC; 85025-TC; 87081-TC; 97110-TC; 97116-TC; 97530-TC; C9803; G0378; G0480; J0360; J2060; J3475; J7030